=== PATIENT | female | born 1960 | race Caucasian/White ===

== ENCOUNTER 2022-10-14 07:23 | Emergency (ER) | payer OTHER ==
[~2022-10-14] VITALS: Ht 162.6 cm; Wt 65.8 kg
[~2022-10-14 07:23] MED LIST: ACETAMINOPHEN500 MG PO; AZIT250 PO; CONEST.9; GLIM2 PO; GLIM4 PO; HYDACE5; HYDACE5 PO; IBUP200; IBUP800 PO; METF500 PO; Multiple Vitam1 EAC1 PO; NAPR550 PO; OMEP20ER PO; OXYACE5T PO; Omeprazole20 M1 PO; PIOG15 PO; PRAV20 PO; ROSU5 PO; SIMV10 PO; TIMO.5OPSO BOTHEYES; UBID10 PO
[2022-10-14 07:44] VITALS: BP 112/46
[2022-10-14] MEDS ORDERED: CEPHALEXIN250 MG/5 M PO (09:17)
== END 2022-10-14 09:54 | disposition home or self-care (01) ==
LOC: ER 07:23
DX: L03.114 Cellulitis of left upper limb (principal); Z88.6 Allergy status to analgesic agent; K21.9 Gastro-esophageal reflux disease without esophagitis; G47.30 Sleep apnea, unspecified; F17.210 Nicotine dependence, cigarettes, uncomplicated
CPT/HCPCS: 73080; 99283-25; A9270